=== PATIENT | male | born 1955 | race Caucasian/White ===

== ENCOUNTER 2017-06-22 19:23 | Inpatient (IN) | payer SELFPAY, MEDICAID ==
[2017-06-22] MEDS ORDERED: ALBUTEROL SULFATE 2.5 MG/3 ML NEBU. (19:36)
[2017-06-22 19:49] LABS: BASE EXCESS COOX 4 mmol/L (-3-3); CARBON MONOXIDE 1.7 % (0.0-1.9); HCO3 COOX 28 mmol/L (21-28); METHEMOGLOBIN 0.4 % (0.0-1.9); OXYHEMOGLOBIN 93.8 %; PCO2 COOX 42 mmHg (35-46); PH COOX 7.44 (7.35-7.45); PO2 COOX 79 mmHg (65-108); SAT O2 COOX 96 % (92-99); TOTAL HEMOGLOBIN 12.7 g/dL
[2017-06-22] MEDS: ALBUTEROL SULFATE 2.5 MG/3 ML NEBU. CONT NEB (19:53)
[2017-06-22 19:58] LABS: BASO % 0 % (0-3); EOS # 0.1 x10^3/uL (0.0-0.7); EOS % 1 % (0-3); HEMATOCRIT 38.8 % (39.0-53.0); HEMOGLOBIN 12.8 g/dL (13.0-17.5); LYMPH # 0.5 x10^3/uL (1.0-4.8); LYMPH % 6 % (24-48); MEAN CORPUSCULAR HEMOGLOBIN 32 pg (25-35); MEAN CORPUSCULAR HGB CONC 33 g/dL (31-37); MEAN CORPUSCULAR VOLUME 97 fL (79-100); MONO # 0.4 x10^3/uL (0.0-1.1); MONO % 6 % (0-9); NEUT # 6.4 x10^3uL (1.8-7.7); NEUT % 87 % (31-73); PLATELET COUNT 256 x10^3/uL (140-400); RED BLOOD COUNT 4.01 x10^6/uL (4.30-5.70); WHITE BLOOD COUNT 7.3 x10^3/uL (4.0-11.0)
[2017-06-22 19:59] LABS: ADD MAN DIFF? YES
[2017-06-22] MEDS: methylPREDNISolone SOD SUCC PF 125 MG/2 ML VIAL. IV (20:02)
[2017-06-22 20:11] LABS: ANION GAP 9 (6-14); BLOOD UREA NITROGEN 16 mg/dL (8-26); BUN/CREATININE RATIO 32 (6-20); CALCIUM 9.1 mg/dL (8.5-10.1); CARBON DIOXIDE 29 mmol/L (21-32); CHLORIDE 101 mmol/L (98-107); CREATININE 0.5 mg/dL (0.7-1.3); GFR 169.6; GLUCOSE 80 mg/dL (70-99); POTASSIUM 3.8 mmol/L (3.5-5.1); SODIUM 139 mmol/L (136-145)
[2017-06-22 20:19] LABS: ALBUMIN 2.6 g/dL (3.4-5.0); ALBUMIN/GLOBULIN RATIO 0.6 (1.0-1.7); ALK PHOS 94 U/L (46-116); ALT (SGPT) 46 U/L (16-63); AST (SGOT) 18 U/L (15-37); TOTAL BILIRUBIN 0.5 mg/dL (0.2-1.0); TOTAL PROTEIN 7.3 g/dL (6.4-8.2)
[2017-06-22 20:21] LABS: TROPONINI < 0.017 ng/mL (0.000-0.055)
[2017-06-22 20:23] LABS: NT-PRO BNP 171 pg/mL (0-124)
[2017-06-22 20:41] LABS: % BANDS 23 % (0-9); % EOS 1 % (0-5); % LYMPHS 8 % (24-48); % MONOS 6 % (0-10); % SEGS 62 % (35-66)
[2017-06-22 20:43] LABS: PLT ESTIMATE ADEQUATE (ADEQUATE); TOXIC GRANULATION SLIGHT
[2017-06-22] MEDS: dilTIAZem IV PUSH 25 MG/5 ML VIAL IVP (21:08)
[2017-06-22] MEDS ORDERED: CONTRAST GIVEN MC (21:15)
[2017-06-22] MEDS: dilTIAZem VIAL 125 MG in IV DEXTROSE 5% 100 ML IV (21:21)
[2017-06-22] MEDS: IOHEXOL 300 MG/ML 100ML VIAL. IV (21:50)
[2017-06-22 23:17] LABS: C-REACTIVE PROTEIN 158.6 mg/L (0-3.3)
[2017-06-23] MEDS: IBUPROFEN 600 MG TABLET. PO (01:04)
[2017-06-23] MEDS: ALBUTEROL SULFATE 2.5 MG/3 ML NEBU. NEB ×2 (08:32→23:25)
[2017-06-23] MEDS ORDERED: hydrALAZINE 20 MG/ML VIAL. IVP (09:00)
[2017-06-23] MEDS ORDERED: DOCUSATE SODIUM 100 MG CAPSULE. PO (09:00)
[2017-06-23] MEDS ORDERED: ONDANSETRON PF 4 MG/2 ML VIAL. IV (09:00)
[2017-06-23] MEDS ORDERED: MORPHINE SULFATE 4 MG/ML DISP.SYRIN. IV (09:00)
[2017-06-23] MEDS ORDERED: ACETAMINOPHEN 325 MG TABLET. PO (09:00)
[2017-06-23] MEDS ORDERED: NON FORMULARY ITEM (Tiotropium Bromide (Spiriva) 2 INH) IH (09:00)
[2017-06-23] MEDS: CETIRIZINE HCL 10 MG TABLET. PO (11:33)
[2017-06-23] MEDS: ASPIRIN ENTERIC COATED 81 MG TABLET.DR. PO (11:33)
[2017-06-23] MEDS: ENOXAPARIN 40 MG/0.4 ML SYRINGE. SQ (11:34)
[2017-06-23] MEDS: IPRATRPIUM/ALBUTEROL 0.5/2.5MG 3 ML NEBU. NEB ×3 (12:31→20:35)
[2017-06-23] MEDS: methylPREDNISolone SOD SUCC PF 40 MG/ML VIAL. IV ×2 (14:58→21:43)
[2017-06-23] MEDS: FAMOTIDINE 20 MG/2 ML VIAL IVP (21:04)
[2017-06-24] MEDS: ALBUTEROL SULFATE 2.5 MG/3 ML NEBU. NEB (03:00)
[2017-06-24 04:19] LABS: ADD MAN DIFF? NO
[2017-06-24 04:28] LABS: BASO % 0 % (0-3); EOS % 0 % (0-3); HEMATOCRIT 32.4 % (39.0-53.0); HEMOGLOBIN 10.9 g/dL (13.0-17.5); LYMPH # 0.2 x10^3/uL (1.0-4.8); LYMPH % 3 % (24-48); MEAN CORPUSCULAR HEMOGLOBIN 33 pg (25-35); MEAN CORPUSCULAR HGB CONC 34 g/dL (31-37); MEAN CORPUSCULAR VOLUME 97 fL (79-100); MONO # 0.2 x10^3/uL (0.0-1.1); MONO % 3 % (0-9); NEUT # 6.7 x10^3uL (1.8-7.7); NEUT % 93 % (31-73); PLATELET COUNT 305 x10^3/uL (140-400); RED BLOOD COUNT 3.34 x10^6/uL (4.30-5.70); RED CELL DISTRIBUTION WIDTH 14.4 % (11.5-14.5); WHITE BLOOD COUNT 7.2 x10^3/uL (4.0-11.0)
[2017-06-24 04:48] LABS: ANION GAP 7 (6-14); BLOOD UREA NITROGEN 22 mg/dL (8-26); CALCIUM 8.9 mg/dL (8.5-10.1); CARBON DIOXIDE 30 mmol/L (21-32); CHLORIDE 103 mmol/L (98-107); CREATININE 0.6 mg/dL (0.7-1.3); GFR 137.4; GLUCOSE 161 mg/dL (70-99); POTASSIUM 4.7 mmol/L (3.5-5.1); SODIUM 140 mmol/L (136-145)
[2017-06-24] MEDS: methylPREDNISolone SOD SUCC PF 40 MG/ML VIAL. IV ×3 (06:01→20:15)
[2017-06-24] MEDS: IPRATRPIUM/ALBUTEROL 0.5/2.5MG 3 ML NEBU. NEB ×4 (08:09→20:17)
[2017-06-24] MEDS: ASPIRIN ENTERIC COATED 81 MG TABLET.DR. PO (09:05)
[2017-06-24] MEDS: CETIRIZINE HCL 10 MG TABLET. PO (09:05)
[2017-06-24] MEDS: ENOXAPARIN 40 MG/0.4 ML SYRINGE. SQ (09:06)
[2017-06-24] MEDS: NICOTINE 21MG PATCH. TD (10:48)
[2017-06-24] MEDS: ALPRAZolam 0.25 MG TABLET PO ×2 (10:48→22:11)
[2017-06-24] MEDS: FAMOTIDINE 20 MG TABLET. PO (20:15)
[2017-06-25] MEDS: traMADol 50 MG TABLET PO (02:19)
[2017-06-25] MEDS: ALBUTEROL SULFATE 2.5 MG/3 ML NEBU. NEB ×2 (02:29→23:02)
[2017-06-25] MEDS: IPRATRPIUM/ALBUTEROL 0.5/2.5MG 3 ML NEBU. NEB ×4 (08:17→19:51)
[2017-06-25] MEDS: CETIRIZINE HCL 10 MG TABLET. PO (08:42)
[2017-06-25] MEDS: ASPIRIN ENTERIC COATED 81 MG TABLET.DR. PO (08:42)
[2017-06-25] MEDS: methylPREDNISolone SOD SUCC PF 40 MG/ML VIAL. IV ×2 (08:43→20:51)
[2017-06-25] MEDS: ENOXAPARIN 40 MG/0.4 ML SYRINGE. SQ (08:43)
[2017-06-25] MEDS: NICOTINE 21MG PATCH. TD (08:52)
[2017-06-25] MEDS: ALPRAZolam 0.25 MG TABLET PO (09:00)
[2017-06-25] MEDS: FAMOTIDINE 20 MG TABLET. PO (20:50)
[2017-06-25] MEDS: LORazepam 0.5 MG TABLET PO (20:50)
[2017-06-26] MEDS: ALPRAZolam 0.25 MG TABLET PO ×2 (00:42→22:05)
[2017-06-26] MEDS: ALBUTEROL SULFATE 2.5 MG/3 ML NEBU. NEB ×3 (02:58→17:57)
[2017-06-26 05:29] LABS: ADD MAN DIFF? NO
[2017-06-26 05:34] LABS: BASO % 0 % (0-3); EOS % 0 % (0-3); HEMATOCRIT 30.8 % (39.0-53.0); HEMOGLOBIN 10.6 g/dL (13.0-17.5); LYMPH # 0.4 x10^3/uL (1.0-4.8); LYMPH % 5 % (24-48); MEAN CORPUSCULAR HEMOGLOBIN 33 pg (25-35); MEAN CORPUSCULAR HGB CONC 34 g/dL (31-37); MEAN CORPUSCULAR VOLUME 96 fL (79-100); MONO # 0.4 x10^3/uL (0.0-1.1); MONO % 5 % (0-9); NEUT # 6.9 x10^3uL (1.8-7.7); NEUT % 90 % (31-73); PLATELET COUNT 370 x10^3/uL (140-400); RED CELL DISTRIBUTION WIDTH 14.6 % (11.5-14.5); WHITE BLOOD COUNT 7.6 x10^3/uL (4.0-11.0)
[2017-06-26 06:01] LABS: ANION GAP 4 (6-14); BLOOD UREA NITROGEN 19 mg/dL (8-26); CALCIUM 8.8 mg/dL (8.5-10.1); CARBON DIOXIDE 32 mmol/L (21-32); CHLORIDE 103 mmol/L (98-107); CREATININE 0.6 mg/dL (0.7-1.3); GFR 137.4; GLUCOSE 137 mg/dL (70-99); POTASSIUM 4.3 mmol/L (3.5-5.1); SODIUM 139 mmol/L (136-145)
[2017-06-26] MEDS: IPRATRPIUM/ALBUTEROL 0.5/2.5MG 3 ML NEBU. NEB ×4 (07:53→19:52)
[2017-06-26] MEDS: methylPREDNISolone SOD SUCC PF 40 MG/ML VIAL. IV ×2 (08:53→20:06)
[2017-06-26] MEDS: ENOXAPARIN 40 MG/0.4 ML SYRINGE. SQ (08:53)
[2017-06-26] MEDS: CETIRIZINE HCL 10 MG TABLET. PO (08:53)
[2017-06-26] MEDS: ASPIRIN ENTERIC COATED 81 MG TABLET.DR. PO (08:54)
[2017-06-26] MEDS: LORazepam 0.5 MG TABLET PO ×2 (08:54→20:05)
[2017-06-26 13:42] LABS: THYROID STIM HORMONE (TSH) 0.062 uIU/mL (0.358-3.74)
[2017-06-26] MEDS: NICOTINE 21MG PATCH. TD (14:44)
[2017-06-26] MEDS: FAMOTIDINE 20 MG TABLET. PO (20:05)
[2017-06-27] MEDS: ALBUTEROL SULFATE 2.5 MG/3 ML NEBU. NEB ×2 (00:19→22:10)
[2017-06-27 05:46] LABS: HEMATOCRIT 32.1 % (39.0-53.0); HEMOGLOBIN 10.9 g/dL (13.0-17.5); MEAN CORPUSCULAR HEMOGLOBIN 33 pg (25-35); MEAN CORPUSCULAR HGB CONC 34 g/dL (31-37); MEAN CORPUSCULAR VOLUME 96 fL (79-100); PLATELET COUNT 388 x10^3/uL (140-400); RED BLOOD COUNT 3.34 x10^6/uL (4.30-5.70); RED CELL DISTRIBUTION WIDTH 14.5 % (11.5-14.5); WHITE BLOOD COUNT 10.3 x10^3/uL (4.0-11.0)
[2017-06-27 06:11] LABS: ALBUMIN 2.3 g/dL (3.4-5.0); ALBUMIN/GLOBULIN RATIO 0.6 (1.0-1.7); ALK PHOS 80 U/L (46-116); ALT (SGPT) 45 U/L (16-63); ANION GAP 6 (6-14); AST (SGOT) 14 U/L (15-37); BLOOD UREA NITROGEN 23 mg/dL (8-26); BUN/CREATININE RATIO 38 (6-20); CARBON DIOXIDE 27 mmol/L (21-32); CHLORIDE 102 mmol/L (98-107); CREATININE 0.6 mg/dL (0.7-1.3); GFR 137.4; GLUCOSE 140 mg/dL (70-99); POTASSIUM 4.8 mmol/L (3.5-5.1); SODIUM 135 mmol/L (136-145); TOTAL BILIRUBIN 0.3 mg/dL (0.2-1.0)
[2017-06-27] MEDS: IPRATRPIUM/ALBUTEROL 0.5/2.5MG 3 ML NEBU. NEB ×4 (07:37→20:01)
[2017-06-27 08:26] LABS: SEDIMENTATION RATE 78 (0-15)
[2017-06-27] MEDS: ASPIRIN ENTERIC COATED 81 MG TABLET.DR. PO (08:32)
[2017-06-27] MEDS: methylPREDNISolone SOD SUCC PF 40 MG/ML VIAL. IV ×2 (08:32→20:41)
[2017-06-27] MEDS: ENOXAPARIN 40 MG/0.4 ML SYRINGE. SQ (08:32)
[2017-06-27] MEDS: CETIRIZINE HCL 10 MG TABLET. PO (08:32)
[2017-06-27] MEDS: LORazepam 0.5 MG TABLET PO ×2 (08:32→20:41)
[2017-06-27 10:21] LABS: FREE T4 0.83 ng/dL (0.76-1.46)
[2017-06-27] MEDS: ALPRAZolam 0.25 MG TABLET PO ×2 (11:49→22:03)
[2017-06-27] MEDS: NICOTINE 21MG PATCH. TD (15:58)
[2017-06-27] MEDS: FAMOTIDINE 20 MG TABLET. PO (20:41)
[2017-06-28] MEDS: IPRATRPIUM/ALBUTEROL 0.5/2.5MG 3 ML NEBU. NEB ×4 (07:46→18:13)
[2017-06-28] MEDS: ASPIRIN ENTERIC COATED 81 MG TABLET.DR. PO (09:21)
[2017-06-28] MEDS: methylPREDNISolone SOD SUCC PF 40 MG/ML VIAL. IV ×2 (09:21→20:54)
[2017-06-28] MEDS: CETIRIZINE HCL 10 MG TABLET. PO (09:21)
[2017-06-28] MEDS: LORazepam 0.5 MG TABLET PO ×2 (09:21→20:04)
[2017-06-28] MEDS: ENOXAPARIN 40 MG/0.4 ML SYRINGE. SQ (09:21)
[2017-06-28] MEDS: BUDESONIDE 0.5 MG/2 ML NEBU. NEB ×2 (11:29→18:13)
[2017-06-28] MEDS: FAMOTIDINE 20 MG TABLET. PO (20:54)
[2017-06-28] MEDS: ALPRAZolam 0.25 MG TABLET PO (22:02)
[2017-06-29] MEDS: BUDESONIDE 0.5 MG/2 ML NEBU. NEB (07:40)
[2017-06-29] MEDS: IPRATRPIUM/ALBUTEROL 0.5/2.5MG 3 ML NEBU. NEB ×3 (07:40→14:33)
[2017-06-29] MEDS: CETIRIZINE HCL 10 MG TABLET. PO (08:30)
[2017-06-29] MEDS: ASPIRIN ENTERIC COATED 81 MG TABLET.DR. PO (08:30)
[2017-06-29] MEDS: methylPREDNISolone SOD SUCC PF 40 MG/ML VIAL. IV (08:30)
[2017-06-29] MEDS: LORazepam 0.5 MG TABLET PO (08:30)
[2017-06-29] MEDS: ENOXAPARIN 40 MG/0.4 ML SYRINGE. SQ (08:33)
[2017-06-29] MEDS: LIDO:MAALOX:BENADRYL 1:1:1 180 ML BOTTLE. PO ×2 (08:36→11:29)
[2017-06-29] MEDS ORDERED: MONTELUKAST SODIUM 10 MG TABLET. PO (21:00)
== END 2017-06-29 15:28 | disposition home or self-care (01) | DRG 157 ==
LOC: 2 SOUTH 06-24 08:00 → ER 19:23 → 5 SOUTH 20:00 → 1 WEST ICU 21:41
PROC: 5A09357 Assistance with Respiratory Ventilation, Less than 24 Consecutive Hours, Continuous Positive Airway Pressure (ICD-10-PCS; principal; 2017-06-23)
PROC: 5A09357 Assistance with Respiratory Ventilation, Less than 24 Consecutive Hours, Continuous Positive Airway Pressure (ICD-10-PCS; 2017-06-24)
PROC: 5A09357 Assistance with Respiratory Ventilation, Less than 24 Consecutive Hours, Continuous Positive Airway Pressure (ICD-10-PCS; 2017-06-25)
PROC: 5A09357 Assistance with Respiratory Ventilation, Less than 24 Consecutive Hours, Continuous Positive Airway Pressure (ICD-10-PCS; 2017-06-26)
PROC: 5A09357 Assistance with Respiratory Ventilation, Less than 24 Consecutive Hours, Continuous Positive Airway Pressure (ICD-10-PCS; 2017-06-27)
PROC: 5A09357 Assistance with Respiratory Ventilation, Less than 24 Consecutive Hours, Continuous Positive Airway Pressure (ICD-10-PCS; 2017-06-28)
PROC: 5A09357 Assistance with Respiratory Ventilation, Less than 24 Consecutive Hours, Continuous Positive Airway Pressure (ICD-10-PCS; 2017-06-29)
DX: B37.0 Candidal stomatitis (principal); J96.21 Acute and chronic respiratory failure with hypoxia; I50.9 Heart failure, unspecified; J44.1 Chronic obstructive pulmonary disease with (acute) exacerbation; I48.0 Paroxysmal atrial fibrillation; J45.901 Unspecified asthma with (acute) exacerbation; F17.210 Nicotine dependence, cigarettes, uncomplicated; Z77.22 Contact with and (suspected) exposure to environmental tobacco smoke (acute) (chronic); Z91.19 Patient's noncompliance with other medical treatment and regimen; Z90.49 Acquired absence of other specified parts of digestive tract; Z71.6 Tobacco abuse counseling
CPT/HCPCS: 36415; 36600; 71045; 71275; 80048; 80053; 82805; 83880; 84439; 84443; 84481; 84484; 85007; 85025; 85027; 85651; 86140; 87040; 93005; 93306; 94640; 94644; 94660; 94760; 96365; 96374; 96375; 97110-GP; 97162-GP; 97165-GO; 97530-GP; 97535-GO; 99285; 99285-25; J1650; J2920; J2930; J3490; J7613; J7620; J7626; Q9967; S0028

== ENCOUNTER 2017-07-15 06:00 | Inpatient (IN) | payer MEDICARE, MEDICAID ==
[2017-07-15] MEDS ORDERED: IPRATRPIUM/ALBUTEROL 0.5/2.5MG 3 ML NEBU. (06:10)
[2017-07-15] MEDS: IPRATRPIUM/ALBUTEROL 0.5/2.5MG 3 ML NEBU. NEB ×4 (06:15→20:07)
[2017-07-15 06:46] LABS: BASO # 0.1 x10^3/uL (0.0-0.2); BASO % 0 % (0-3); EOS % 0 % (0-3); HEMATOCRIT 33.1 % (39.0-53.0); HEMOGLOBIN 10.9 g/dL (13.0-17.5); LYMPH % 8 % (24-48); MEAN CORPUSCULAR HEMOGLOBIN 32 pg (25-35); MEAN CORPUSCULAR HGB CONC 33 g/dL (31-37); MEAN CORPUSCULAR VOLUME 97 fL (79-100); MONO # 0.8 x10^3/uL (0.0-1.1); MONO % 6 % (0-9); NEUT # 11.7 x10^3uL (1.8-7.7); NEUT % 86 % (31-73); PLATELET COUNT 310 x10^3/uL (140-400); RED BLOOD COUNT 3.42 x10^6/uL (4.30-5.70); RED CELL DISTRIBUTION WIDTH 15.4 % (11.5-14.5); WHITE BLOOD COUNT 13.6 x10^3/uL (4.0-11.0)
[2017-07-15 06:50] LABS: ANION GAP 9 (6-14); BLOOD UREA NITROGEN 19 mg/dL (8-26); BUN/CREATININE RATIO 16 (6-20); CALCIUM 9.4 mg/dL (8.5-10.1); CARBON DIOXIDE 30 mmol/L (21-32); CHLORIDE 106 mmol/L (98-107); CREATININE 1.2 mg/dL (0.7-1.3); GFR 61.8; GLUCOSE 85 mg/dL (70-99); POTASSIUM 3.9 mmol/L (3.5-5.1); SODIUM 145 mmol/L (136-145)
[2017-07-15 06:55] LABS: ALBUMIN 2.4 g/dL (3.4-5.0); ALBUMIN/GLOBULIN RATIO 0.5 (1.0-1.7); ALK PHOS 91 U/L (46-116); ALT (SGPT) 31 U/L (16-63); AST (SGOT) 21 U/L (15-37); TOTAL BILIRUBIN 0.4 mg/dL (0.2-1.0); TOTAL PROTEIN 6.8 g/dL (6.4-8.2)
[2017-07-15 06:57] LABS: TROPONINI < 0.017 ng/mL (0.000-0.055)
[2017-07-15 07:01] LABS: NT-PRO BNP 177 pg/mL (0-124)
[2017-07-15 07:02] LABS: ADD MAN DIFF? YES
[2017-07-15] MEDS ORDERED: ONDANSETRON PF 4 MG/2 ML VIAL. IV (07:15)
[2017-07-15] MEDS ORDERED: ACETAMINOPHEN 325 MG TABLET. PO (07:15)
[2017-07-15] MEDS: CETIRIZINE HCL 10 MG TABLET. PO (09:09)
[2017-07-15] MEDS: predniSONE 20 MG TABLET PO (09:09)
[2017-07-15] MEDS: ALPRAZolam 0.5 MG TABLET PO ×2 (09:09→21:57)
[2017-07-15 09:36] LABS: % BANDS 2 % (0-9); % LYMPHS 8 % (24-48); % MONOS 11 % (0-10); % SEGS 79 % (35-66)
[2017-07-15 09:37] LABS: PLT ESTIMATE ADEQUATE (ADEQUATE); TOXIC VACUOLATION SLIGHT
[2017-07-15] MEDS: BUDESONIDE 0.5 MG/2 ML NEBU. NEB ×2 (11:26→20:10)
[2017-07-15] MEDS: MIRTAZAPINE 15 MG TABLET PO (20:42)
[2017-07-15 21:24] LABS: POC GLUCOSE 132 mg/dL (70-99)
[2017-07-16] MEDS: BUDESONIDE 0.5 MG/2 ML NEBU. NEB ×2 (07:19→19:17)
[2017-07-16] MEDS: IPRATRPIUM/ALBUTEROL 0.5/2.5MG 3 ML NEBU. NEB ×5 (07:19→22:37)
[2017-07-16] MEDS: ALPRAZolam 0.5 MG TABLET PO ×2 (08:24→22:03)
[2017-07-16] MEDS: predniSONE 20 MG TABLET PO (08:24)
[2017-07-16] MEDS: CETIRIZINE HCL 10 MG TABLET. PO (08:25)
[2017-07-16] MEDS: LORazepam 0.5 MG TABLET PO (10:52)
[2017-07-16 12:08] LABS: BASE EXCESS ABG 6 mmol/L (-3-3); HCO3 ABG 30 mmol/L (21-28); PCO2 ABG 44 mmHg (35-46); PH ABG 7.46 (7.35-7.45); PO2 ABG 69 mmHg (65-108); SAT O2 ABG 94 % (92-99)
[2017-07-16 12:16] LABS: FIO2 ABG 35
[2017-07-16] MEDS: methylPREDNISolone SOD SUCC PF 125 MG/2 ML VIAL. IV ×2 (12:43→22:03)
[2017-07-16 13:02] LABS: FREE T4 0.95 ng/dL (0.76-1.46)
[2017-07-16] MEDS: MIRTAZAPINE 15 MG TABLET PO (20:19)
[2017-07-17] MEDS: ALBUTEROL SULFATE 2.5 MG/3 ML NEBU. NEB (03:46)
[2017-07-17] MEDS: methylPREDNISolone SOD SUCC PF 125 MG/2 ML VIAL. IV ×3 (06:07→22:03)
[2017-07-17 06:34] LABS: ADD MAN DIFF? NO
[2017-07-17 06:40] LABS: BASO % 0 % (0-3); EOS % 0 % (0-3); HEMATOCRIT 30.1 % (39.0-53.0); LYMPH # 0.7 x10^3/uL (1.0-4.8); LYMPH % 4 % (24-48); MEAN CORPUSCULAR HEMOGLOBIN 32 pg (25-35); MEAN CORPUSCULAR HGB CONC 33 g/dL (31-37); MEAN CORPUSCULAR VOLUME 95 fL (79-100); MONO # 0.2 x10^3/uL (0.0-1.1); MONO % 1 % (0-9); NEUT # 15.6 x10^3uL (1.8-7.7); NEUT % 95 % (31-73); PLATELET COUNT 292 x10^3/uL (140-400); RED BLOOD COUNT 3.16 x10^6/uL (4.30-5.70); WHITE BLOOD COUNT 16.4 x10^3/uL (4.0-11.0)
[2017-07-17] MEDS: IPRATRPIUM/ALBUTEROL 0.5/2.5MG 3 ML NEBU. NEB ×6 (07:12→23:45)
[2017-07-17] MEDS: BUDESONIDE 0.5 MG/2 ML NEBU. NEB ×2 (07:12→19:36)
[2017-07-17 07:13] LABS: ALBUMIN 2.2 g/dL (3.4-5.0); ALBUMIN/GLOBULIN RATIO 0.5 (1.0-1.7); ALK PHOS 85 U/L (46-116); ALT (SGPT) 32 U/L (16-63); ANION GAP 8 (6-14); AST (SGOT) 14 U/L (15-37); BLOOD UREA NITROGEN 26 mg/dL (8-26); BUN/CREATININE RATIO 24 (6-20); CALCIUM 9.2 mg/dL (8.5-10.1); CARBON DIOXIDE 30 mmol/L (21-32); CHLORIDE 103 mmol/L (98-107); CREATININE 1.1 mg/dL (0.7-1.3); GFR 68.3; GLUCOSE 162 mg/dL (70-99); POTASSIUM 4.4 mmol/L (3.5-5.1); SODIUM 141 mmol/L (136-145); TOTAL BILIRUBIN 0.3 mg/dL (0.2-1.0); TOTAL PROTEIN 6.3 g/dL (6.4-8.2)
[2017-07-17] MEDS: CETIRIZINE HCL 10 MG TABLET. PO (10:35)
[2017-07-17] MEDS: ALPRAZolam 0.5 MG TABLET PO ×2 (10:35→22:02)
[2017-07-17] MEDS: MIRTAZAPINE 15 MG TABLET PO (21:01)
[2017-07-18] MEDS: IPRATRPIUM/ALBUTEROL 0.5/2.5MG 3 ML NEBU. NEB ×3 (04:07→11:12)
[2017-07-18] MEDS: methylPREDNISolone SOD SUCC PF 125 MG/2 ML VIAL. IV (05:55)
[2017-07-18] MEDS: BUDESONIDE 0.5 MG/2 ML NEBU. NEB (07:08)
[2017-07-18] MEDS: CETIRIZINE HCL 10 MG TABLET. PO (08:35)
[2017-07-18] MEDS: ALPRAZolam 0.5 MG TABLET PO (08:35)
[2017-07-18] MEDS ORDERED: diphenhydrAMINE HCL 25 MG CAPSULE PO (09:00)
== END 2017-07-18 12:00 | disposition home or self-care (01) | DRG 189 ==
LOC: ER 06:00 → 5 SOUTH 06:38
PROC: 5A09357 Assistance with Respiratory Ventilation, Less than 24 Consecutive Hours, Continuous Positive Airway Pressure (ICD-10-PCS; principal; 2017-07-15)
PROC: 5A09357 Assistance with Respiratory Ventilation, Less than 24 Consecutive Hours, Continuous Positive Airway Pressure (ICD-10-PCS; 2017-07-16)
PROC: 5A09357 Assistance with Respiratory Ventilation, Less than 24 Consecutive Hours, Continuous Positive Airway Pressure (ICD-10-PCS; 2017-07-17)
PROC: 5A09357 Assistance with Respiratory Ventilation, Less than 24 Consecutive Hours, Continuous Positive Airway Pressure (ICD-10-PCS; 2017-07-18)
DX: J96.21 Acute and chronic respiratory failure with hypoxia (principal); E43 Unspecified severe protein-calorie malnutrition; G93.40 Encephalopathy, unspecified; I50.9 Heart failure, unspecified; I48.2 Chronic atrial fibrillation; I48.92 Unspecified atrial flutter; J44.1 Chronic obstructive pulmonary disease with (acute) exacerbation; Z68.1 Body mass index [BMI] 19.9 or less, adult; J96.22 Acute and chronic respiratory failure with hypercapnia; I48.91 Unspecified atrial fibrillation; F32.9 Major depressive disorder, single episode, unspecified; F41.9 Anxiety disorder, unspecified; Z87.891 Personal history of nicotine dependence
CPT/HCPCS: 36415; 36600; 71045; 80053; 82805; 82962; 83880; 84439; 84484; 85007; 85025; 93005; 94640; 94660; 94760; 99285; 99285-25; J2930; J7512; J7613; J7620; J7626